=== PATIENT | male | born 1960 | race African-American/Black ===

== ENCOUNTER 2017-09-04 11:02 | Inpatient (IN) | payer OTHER ==
[2017-09-04 11:28] VITALS: BMI 27.3
--- NOTE | 2017-09-04 12:38 | HP ---
CIWA Score - CIWA Score Nausea/Vomitin Muscle Tremors: 3 Anxiety: 3 Agitation: 3 Paroxysmal Sweats: 1-Minimal Palms Moist Orientation: 0-Oriented Tacttile Disturbances: 2-Mild Itch/Numbness/Burn Auditory Disturbances: 2-Mild Harshness/Frighten Visual Disturbances: 0-None Headache: 2-Mild CIWA-Ar Total Score: 19 Admission ROS BHS - HPI Chief Complaint: i nee help to stop drinking alcohol Allergies/Adverse Reactions: Allergies Allergy/AdvReac Type Severity Reaction Status Date / Time Pork/Porcine Containing Allergy Unknown NO PORK Verified 09/04/17 12:16 Products [Pork/Porcine Product Derivatives] History of Present Illness: this 57 years old male with alcohol dependence,seeking detox,last detox [facility]12 syncope alcohol related hypertension,old fx both ankles hepatitis c left inguinal hernia no significant period of sobriety - Ebola screening Have you traveled outside of the country in the last 21 days: No Have you had contact with anyone from an Ebola affected area: No Have you been sick,other than usual withdrawal symptoms: No - Review of Systems Constitutional: Loss of Appetite, Malaise, Night Sweats, Changes in sleep, Weakness EENT: reports: Nose Congestion Respiratory: reports: No Symptoms reported Cardiac: reports: No Symptoms Reported GI: reports: Nausea, Poor Appetite, Vomiting, Abdominal cramping : reports: No Symptoms Reported Musculoskeletal: reports: Back Pain, Muscle Pain Integumentary: reports: Dryness Neuro: reports: Headache, Tremors Endocrine: reports: No Symptoms Reported Hematology: reports: No Symptoms Reported Psychiatric: reports: Anxious (insomnia), Depressed Patient History - Patient Medical History Hx Anemia: No Hx Asthma: No Hx Chronic Obstructive Pulmonary Disease (COPD): No Hx Cancer: No Hx Cardiac Disorders: No Hx Congestive Heart Failure: No Hx Hypertension: Yes (Pt is on MDI.) Hx Hypercholesterolemia: No Hx Pacemaker: No HX Cerebrovascular Accident: No Hx Seizures: No Hx Dementia: No Hx Diabetes: No Hx Gastrointestinal Disorders: No Hx Liver Disease: No Hx Genitourinary Disorders: No Hx Sexually Transmitted Disorders: No Hx Renal Disease (ESRD): No Hx Thyroid Disease: No Hx Human Immunodeficiency Virus (HIV): No (last 07/12) Hx Hepatitis C: No Hx Depression: No Hx Suicide Attempt: No Hx Bipolar Disorder: No Hx Schizophrenia: No Other Medical History: anxiety,depression,insomnia - Patient Surgical History Past Surgical History: Yes Hx Orthopedic Surgery: Yes (left ankle 02/03 R ankle sx) - PPD History Previous Implant?: Yes Documented Results: Negative w/proof Implanted On Prior R Admission?: Yes Date: 04/11/12 Results: 0 mm PPD to be Administered?: Yes - Smoking Cessation Smoking history: Former smoker Have you smoked in the past 12 months: No If you are a former smoker, when did you quit?: 1 yr ago Hx Chewing Tobacco Use: No Initiated information on smoking cessation: No - Substance & Tx. History Hx Alcohol Use: Yes Hx Substance Use: Yes Substance Use Type: Marijuana Hx Substance Use Treatment: Yes ([facility]/12) - Substances Abused Alcohol Route: Oral Frequency: Daily Amount used: fifth of vodka Age of first use: 14 Date of Last Use: 09/04/17 Marijuana/Hashish Route: Smoking Frequency: Daily Amount used: 1 blunt Age of first use: 14 Date of Last Use: 09/04/17 Family Disease History - Family Disease History Family Disease History: Other: Father (alcohol), Mother (alcohol) Admission Physical Exam S - Vital Signs Vital Signs: Vital Signs - 24 hr 09/04/17 11:26 Temperature 97.7 F Pulse Rate 88 Respiratory 18 Rate Blood Pressure 110/73 - Physical General Appearance: Yes: Moderate Distress, Tremorous, Irritable, Sweating, Anxious HEENTM: Yes: Normal ENT Inspection, Normocephalic, GWEN Respiratory: Yes: Within Normal Limits, Lungs Clear, Normal Breath Sounds Neck: Yes: Within Normal Limits, Supple, Trachea in good position Breast: Yes: Within Normal Limits Cardiology: Yes: Within Normal Limits, Regular Rhythm, Regular Rate, S1, S2 Abdominal: Yes: Within Normal Limits, Normal Bowel Sounds, Non Tender, Flat, Soft, Other (laft inguinal hernia) Genitourinary: Yes: Within Normal Limits Back: Yes: Muscle Spasm Musculoskeletal: Yes: full range of Motion, Back pain, Muscle Pain Extremities: Yes: Within Normal Limits, Normal Inspection, Normal Range of Motion 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, Alert, Motor Strength 5/5 Integumentary: Yes: Dry Lymphatic: Yes: Within Normal Limits - Diagnostic (1) Alcohol dependence with uncomplicated withdrawal Current Visit: Yes Status: Acute (2) Alcohol dependence with uncomplicated intoxication Current Visit: Yes Status: Acute (3) Cannabis dependence Current Visit: Yes Status: Acute (4) Syncope Current Visit: Yes Status: Acute (5) Left inguinal hernia Current Visit: Yes Status: Acute (6) Insomnia secondary to depression with anxiety Current Visit: Yes Status: Acute Cleared for Admission [facility] - Detox or Rehab [facility] Level of Care: Medically Managed Detox Regimen/Protocol: Librium S Breath Alcohol Content Breath Alcohol Content: 0.420 Urine Drug Screen - Results Drug Screen Negative: No Urine Drug Screen Results: THC-Marijuana, CARLOS-Cocaine, BZO-Benzodiazepines
[2017-09-04] MEDS ORDERED: chlordiazePOXIDE HCL 25 MG CAPSULE PO PRN (14:08)
[2017-09-04] MEDS ORDERED: ACETAMINOPHEN 325 MG TABLET (FP) PO PRN (14:08)
[2017-09-04] MEDS ORDERED: MAG HYDROX/AL HYDROX/SIMETH 30 ML UNIT-DOSE CUP PO PRN (14:08)
[2017-09-04] MEDS ORDERED: MAGNESIUM CITRATE 300 ML BOTTLE PO PRN (14:08)
[2017-09-04] MEDS ORDERED: MAGNESIUM HYDROX 2400MG/30ML ORAL SUSPENSION 30 ML CUP PO PRN (14:08)
[2017-09-04] MEDS ORDERED: IBUPROFEN 400 MG TABLET (FP) PO PRN (14:08)
[2017-09-04] MEDS ORDERED: guaiFENesin/D-METHORPHAN HB 10 ML UNIT-DOSE CUPS PO PRN (14:08)
[2017-09-04] MEDS ORDERED: hydrOXYzine PAMOATE 25 MG CAPSULE (FP) PO PRN (14:08)
[2017-09-04] MEDS ORDERED: P-EPHED 60MG/TRIPROLIDI 2.5MG TABLET PO PRN (14:08)
[2017-09-04] MEDS ORDERED: MENTHOL/PHENOL 1 EACH UD MM PRN (14:08)
[2017-09-04] MEDS ORDERED: chlordiazePOXIDE HCL 25 MG CAPSULE PO ONE (14:26)
--- NOTE | 2017-09-04 15:52 | CONSULT ---
[facility] Psychiatric Consult - Data Date of interview: 09/04/17 Admission source: [facility] Identifying data: Readmission to [facility] for this 57 y/o AA male seeking detox treatment on for alcohol,cocaine and cannabis dependence.Patient is single without children,domiciled,unemployed and supported on SSI benefits. Substance Abuse History: Confirmed by patient in this session.See current [facility] report for details : Smoking history: Former smoker. Have you smoked in the past 12 months: No. If you are a former smoker, when did you quit?: 1 yr ago. Hx Chewing Tobacco Use: No. Initiated information on smoking cessation: No. - Substance & Tx. History. Hx Alcohol Use: Yes. Hx Substance Use: Yes. Substance Use Type: Marijuana. Hx Substance Use Treatment: Yes ([facility] ). - Substances Abused. Alcohol. Route: Oral. Frequency: Daily. Amount used: fifth of vodka. Age of first use: 14. Date of Last Use: . Marijuana/Hashish. Route: Smoking. Frequency: Daily. Amount used: 1 blunt. Age of first use: 14. Date of Last Use: 09/04/17 Medical History: Hypertension,hepatitis C,left inguinal hernia and past history of orthosurgery for fracture of both ankles. Psychiatric History: Patient denies. Physical/Sexual Abuse/Trauma History: Patient denies. Additional Comment: Urine Drug Screen Results: THC-Marijuana, CARLOS-Cocaine, BZO- Benzodiazepines.Noted. Mental Status Exam - Mental Status Exam Alert and Oriented to: Time, Place, Person Cognitive Function: Good Patient Appearance: Well Groomed Mood: Anxious, Hopeful Affect: Mood Congruent Patient Behavior: Fatigued, Appropriate, Cooperative Speech Pattern: Clear Voice Loudness: Normal Thought Process: Intact, Goal Oriented Thought Disorder: Not Present Hallucinations: Denies Suicidal Ideation: Denies Homicidal Ideation: Denies Insight/Judgement: Poor Sleep: Poorly, Difficulty falling asleep Appetite: Good Muscle strength/Tone: Normal Gait/Station: Normal Psychiatric Findings - Problem List ([place] 1, 2,3) (1) Alcohol dependence with uncomplicated withdrawal Current Visit: Yes Status: Acute (2) Cannabis dependence Current Visit: Yes Status: Acute (3) Cocaine dependence Current Visit: Yes Status: Acute (4) Insomnia Current Visit: Yes Status: Acute - Initial Treatment Plan Initial Treatment Plan: Psychoeducation.Sleep hygiene.Detoxification in progress.Ambien 5 mg po hs prn.Patient is informed of risk of parasomnias.Agrees with careplan.Observation.
[2017-09-04 16:59] LABS: URINE APPEARANCE CLEAR; URINE BILIRUBIN NEGATIVE (NEGATIVE); URINE BLOOD NEGATIVE (NEGATIVE); URINE COLOR YELLOW; URINE GLUCOSE (UA) NEGATIVE (NEGATIVE); URINE KETONE NEGATIVE (NEGATIVE); URINE LEUK ESTERASE NEGATIVE (NEGATIVE); URINE NITRITE NEGATIVE (NEGATIVE); URINE UROBILINOGEN NEGATIVE mg/dL (0.2-1.0)
[2017-09-04 17:03] LABS: URINE PROTEIN 2+ (NEGATIVE)
[2017-09-04 17:08] LABS: EPI CELLS RARE /HPF (FEW); URINE HYALINE CAST 7 /lpf; URINE MUCUS FEW
[2017-09-04] MEDS: chlordiazePOXIDE HCL 25 MG CAPSULE PO SCH ×2 (17:30→22:25)
[2017-09-04] MEDS ORDERED: ZOLPIDEM TARTRATE 5 MG TABLET PO PRN ×2 (22:00)
[2017-09-04] MEDS: THIAMINE HCL 100 MG TABLET (FP) PO SCH (22:25)
[2017-09-05] MEDS: chlordiazePOXIDE HCL 25 MG CAPSULE PO SCH ×4 (06:00→22:16)
--- NOTE | 2017-09-05 09:12 | EKG ---
Test Reason : Blood Pressure : / mmHG Vent. Rate : 068 BPM Atrial Rate : 068 BPM P-R Int : 164 ms QRS Dur : 092 ms QT Int : 448 ms P-R-T Axes : 043 007 218 degrees QTc Int : 476 ms NORMAL SINUS RHYTHM T WAVE ABNORMALITY, CONSIDER INFERIOR ISCHEMIA T WAVE ABNORMALITY, CONSIDER ANTEROLATERAL ISCHEMIA PROLONGED QT ABNORMAL ECG NO PREVIOUS ECGS AVAILABLE Confirmed by NAVIN JORGE MD ([id number]) on 09/05/2017 9:12:05 AM Referred By: Confirmed By:NAVIN JORGE MD
[2017-09-05 09:59] LABS: HEMATOCRIT 43.9 % (35.4-49); MCHC 31.8 g/dl (32.0-35.9); MEAN PLT VOLUME 7.3 fl (7.5-11.1); PLATELET COUNT 230 K/MM3 (134-434); RBC 4.83 M/mm3 (4.00-5.60); RDW 16.3 % (11.9-15.9); WHITE BLOOD COUNT 4.9 K/mm3 (4.0-10.0)
[2017-09-05] MEDS ORDERED: HYDROCHLOROTHIAZIDE 25 MG TABLET (FP) PO SCH (10:00)
[2017-09-05 10:11] LABS: CHLORIDE 102 mmol/L (98-107); POTASSIUM 3.4 mmol/L (3.5-5.1); SODIUM 140 mmol/L (136-145)
[2017-09-05] MEDS: PRENATAL VITAMINS W/ FOLIC ACID TABLET (FP) PO SCH (10:19)
[2017-09-05 10:51] LABS: ALBUMIN 4.1 g/dl (3.4-5.0); ALK PHOS 52 U/L (45-117); ANION GAP 12 (8-16); BILIRUBIN,TOTAL 0.7 mg/dL (0.2-1.0); BLOOD UREA NITROGEN 13 mg/dL (7-18); CALCIUM 9.4 mg/dL (8.5-10.1); CO2 26 mmol/L (21-32); CREATININE 1.3 mg/dL (0.7-1.3); GLUCOSE,RANDOM 124 mg/dL (74-106); SGOT/AST 84 U/L (15-37); SGPT/ALT 83 U/L (12-78); TOT PROT 9.1 g/dl (6.4-8.2)
[2017-09-05] MEDS ORDERED: POTASSIUM CHLORIDE ORAL LIQUID 20 MEQ/15 ML PO ONE (11:00)
--- NOTE | 2017-09-05 11:01 | PN ---
[facility] CIWA - CIWA Score Nausea/Vomitin-No Nausea/No Vomiting Muscle Tremors: 4-Moderate,w/Arms Extend Anxiety: 4-Mod. Anxious/Guarded Agitation: 4-Moderately Restless Paroxysmal Sweats: 2 Orientation: 0-Oriented Tacttile Disturbances: 3-Moderate Itch/Numb/Burn Auditory Disturbances: 0-None Visual Disturbances: 0-None Headache: 0-None Present CIWA-Ar Total Score: 17 S Progress Note (SOAP) Subjective: ANXIETY,SWEATS,CHILLS,TREMORS,BACKACHES,INTERMITTENT SLEEP. Objective: 09/05/17 10:55 Vital Signs Temperature 97.9 F 09/05/17 06:19 Pulse Rate 80 09/05/17 09:26 Respiratory Rate 18 09/05/17 09:26 Blood Pressure 136/92 09/05/17 09:26 O2 Sat by Pulse Oximetry (%) Laboratory Last Values WBC 4.9 K/mm3 (4.0-10.0) 09/05/17 06:00 RBC 4.83 M/mm3 (4.00-5.60) 09/05/17 06:00 Hgb 14.0 GM/dL (11.7-16.9) D 09/05/17 06:00 Hct 43.9 % (35.4-49) 09/05/17 06:00 MCV 91.0 fl (80-96) 09/05/17 06:00 MCH 29.0 pg (25.7-33.7) 09/05/17 06:00 MCHC 31.8 g/dl (32.0-35.9) L 09/05/17 06:00 RDW 16.3 % (11.9-15.9) H 09/05/17 06:00 Plt Count 230 K/MM3 (134-434) 09/05/17 06:00 MPV 7.3 fl (7.5-11.1) L 09/05/17 06:00 Sodium 140 mmol/L (136-145) 09/05/17 06:00 Potassium 3.4 mmol/L (3.5-5.1) L D 09/05/17 06:00 Chloride 102 mmol/L (98-107) 09/05/17 06:00 Carbon Dioxide 26 mmol/L (21-32) 09/05/17 06:00 Anion Gap 12 (8-16) 09/05/17 06:00 BUN 13 mg/dL (7-18) 09/05/17 06:00 Creatinine 1.3 mg/dL (0.7-1.3) D 09/05/17 06:00 Creat Clearance w eGFR 57.10 (>60) 09/05/17 06:00 Random Glucose 124 mg/dL (74-106) H D 09/05/17 06:00 Calcium 9.4 mg/dL (8.5-10.1) 09/05/17 06:00 Total Bilirubin 0.7 mg/dL (0.2-1.0) D 09/05/17 06:00 AST 84 U/L (15-37) H D 09/05/17 06:00 ALT 83 U/L (12-78) H D 09/05/17 06:00 Alkaline Phosphatase 52 U/L (45-117) D 09/05/17 06:00 Total Protein 9.1 g/dl (6.4-8.2) H D 09/05/17 06:00 Albumin 4.1 g/dl (3.4-5.0) D 09/05/17 06:00 Urine Color Yellow 09/04/17 15:00 Urine Appearance Clear 09/04/17 15:00 Urine pH 5.0 (5.0-8.0) 09/04/17 15:00 Ur Specific [place] 1.021 (1.001-1.035) 09/04/17 15:00 Urine Protein 2+ (NEGATIVE) H 09/04/17 15:00 Urine Glucose (UA) Negative (NEGATIVE) 09/04/17 15:00 Urine Ketones Negative (NEGATIVE) 09/04/17 15:00 Urine Blood Negative (NEGATIVE) 09/04/17 15:00 Urine Nitrite Negative (NEGATIVE) 09/04/17 15:00 Urine Bilirubin Negative (NEGATIVE) 09/04/17 15:00 Urine Urobilinogen Negative mg/dL (0.2-1.0) 09/04/17 15:00 Ur Leukocyte Esterase Negative (NEGATIVE) 09/04/17 15:00 Urine WBC (Auto) 1 /hpf (3-5) 09/04/17 15:00 Urine RBC (Auto) <1 /hpf (0-3) 09/04/17 15:00 Ur Epithelial Cells Rare /HPF (FEW) 09/04/17 15:00 Hyaline Casts 7 /lpf 09/04/17 15:00 Urine Mucus Few 09/04/17 15:00 HIV 1&2 Antibody Screen Negative 09/04/17 14:30 HIV P24 Antigen Negative 09/04/17 14:30 K+ =3.4 Assessment: 09/05/17 10:56 WITHDRAWAL SX Plan: CONTINUE DETOX KCL LIQ 20 MEQ PO DAILY; FIRST DOSE NOW.
[2017-09-05] MEDS: THIAMINE HCL 100 MG TABLET (FP) PO SCH (22:16)
[2017-09-05] MEDS: LOPERAMIDE HCL 2 MG CAPSULE PO PRN (23:16)
[2017-09-06] MEDS: chlordiazePOXIDE HCL 25 MG CAPSULE PO SCH ×2 (05:18→10:18)
[2017-09-06] MEDS: LOPERAMIDE HCL 2 MG CAPSULE PO PRN (07:13)
[2017-09-06] MEDS: PRENATAL VITAMINS W/ FOLIC ACID TABLET (FP) PO SCH (10:18)
[2017-09-06] MEDS: amLODIPine BESYLATE 10 MG TABLET (FP) PO SCH (10:18)
[2017-09-06] MEDS: POTASSIUM CHLORIDE ORAL LIQUID 20 MEQ/15 ML PO SCH (10:19)
--- NOTE | 2017-09-06 10:47 | PN ---
[facility] CIWA - CIWA Score Nausea/Vomitin-No Nausea/No Vomiting Muscle Tremors: 4-Moderate,w/Arms Extend Anxiety: 4-Mod. Anxious/Guarded Agitation: 4-Moderately Restless Paroxysmal Sweats: 1-Minimal Palms Moist Orientation: 0-Oriented Tacttile Disturbances: 3-Moderate Itch/Numb/Burn Auditory Disturbances: 0-None Visual Disturbances: 0-None Headache: 0-None Present CIWA-Ar Total Score: 16 BHS Progress Note (SOAP) Subjective: TREMORS,ANXIETY,SWEATS,FATIGUE. Objective: 09/06/17 10:46 Vital Signs Temperature 98.0 F 09/06/17 09:49 Pulse Rate 84 09/06/17 09:49 Respiratory Rate 18 09/06/17 09:49 Blood Pressure 122/85 09/06/17 09:49 O2 Sat by Pulse Oximetry (%) Laboratory Last Values WBC 4.9 K/mm3 (4.0-10.0) 09/05/17 06:00 RBC 4.83 M/mm3 (4.00-5.60) 09/05/17 06:00 Hgb 14.0 GM/dL (11.7-16.9) D 09/05/17 06:00 Hct 43.9 % (35.4-49) 09/05/17 06:00 MCV 91.0 fl (80-96) 09/05/17 06:00 MCH 29.0 pg (25.7-33.7) 09/05/17 06:00 MCHC 31.8 g/dl (32.0-35.9) L 09/05/17 06:00 RDW 16.3 % (11.9-15.9) H 09/05/17 06:00 Plt Count 230 K/MM3 (134-434) 09/05/17 06:00 MPV 7.3 fl (7.5-11.1) L 09/05/17 06:00 Sodium 140 mmol/L (136-145) 09/05/17 06:00 Potassium 3.4 mmol/L (3.5-5.1) L D 09/05/17 06:00 Chloride 102 mmol/L (98-107) 09/05/17 06:00 Carbon Dioxide 26 mmol/L (21-32) 09/05/17 06:00 Anion Gap 12 (8-16) 09/05/17 06:00 BUN 13 mg/dL (7-18) 09/05/17 06:00 Creatinine 1.3 mg/dL (0.7-1.3) D 09/05/17 06:00 Creat Clearance w eGFR 57.10 (>60) 09/05/17 06:00 Random Glucose 124 mg/dL (74-106) H D 09/05/17 06:00 Calcium 9.4 mg/dL (8.5-10.1) 09/05/17 06:00 Total Bilirubin 0.7 mg/dL (0.2-1.0) D 09/05/17 06:00 AST 84 U/L (15-37) H D 09/05/17 06:00 ALT 83 U/L (12-78) H D 09/05/17 06:00 Alkaline Phosphatase 52 U/L (45-117) D 09/05/17 06:00 Total Protein 9.1 g/dl (6.4-8.2) H D 09/05/17 06:00 Albumin 4.1 g/dl (3.4-5.0) D 09/05/17 06:00 Urine Color Yellow 09/04/17 15:00 Urine Appearance Clear 09/04/17 15:00 Urine pH 5.0 (5.0-8.0) 09/04/17 15:00 Ur Specific [place] 1.021 (1.001-1.035) 09/04/17 15:00 Urine Protein 2+ (NEGATIVE) H 09/04/17 15:00 Urine Glucose (UA) Negative (NEGATIVE) 09/04/17 15:00 Urine Ketones Negative (NEGATIVE) 09/04/17 15:00 Urine Blood Negative (NEGATIVE) 09/04/17 15:00 Urine Nitrite Negative (NEGATIVE) 09/04/17 15:00 Urine Bilirubin Negative (NEGATIVE) 09/04/17 15:00 Urine Urobilinogen Negative mg/dL (0.2-1.0) 09/04/17 15:00 Ur Leukocyte Esterase Negative (NEGATIVE) 09/04/17 15:00 Urine WBC (Auto) 1 /hpf (3-5) 09/04/17 15:00 Urine RBC (Auto) <1 /hpf (0-3) 09/04/17 15:00 Ur Epithelial Cells Rare /HPF (FEW) 09/04/17 15:00 Hyaline Casts 7 /lpf 09/04/17 15:00 Urine Mucus Few 09/04/17 15:00 RPR Titer Nonreactive (NONREACTIVE) 09/05/17 06:00 HIV 1&2 Antibody Screen Negative 09/04/17 14:30 HIV P24 Antigen Negative 09/04/17 14:30 Assessment: 09/06/17 10:47 WITHDRAWAL SX Plan: CONTINUE DETOX INCREASE PO FLUIDS.
[2017-09-06] MEDS ORDERED: chlordiazePOXIDE HCL 25 MG CAPSULE PO ONE (14:30)
[2017-09-06] MEDS: chlordiazePOXIDE 5 MG CAPSULE PO SCH ×2 (17:32→22:14)
[2017-09-06] MEDS: THIAMINE HCL 100 MG TABLET (FP) PO SCH (22:14)
[2017-09-07] MEDS: chlordiazePOXIDE 5 MG CAPSULE PO SCH ×2 (05:51→10:16)
[2017-09-07] MEDS: POTASSIUM CHLORIDE ORAL LIQUID 20 MEQ/15 ML PO SCH (10:16)
[2017-09-07] MEDS: amLODIPine BESYLATE 10 MG TABLET (FP) PO SCH (10:16)
[2017-09-07] MEDS: PRENATAL VITAMINS W/ FOLIC ACID TABLET (FP) PO SCH (10:16)
--- NOTE | 2017-09-07 10:42 | PN ---
BHS Progress Note (SOAP) Subjective: Sweats, chills and malaise Objective: 09/07/17 10:41 Vital Signs - 8 hr 09/07/17 09/07/17 09/07/17 03:27 06:23 09:09 Temperature 97.5 F L 96.5 F L Pulse Rate 71 68 Respiratory 18 18 18 Rate Blood Pressure 122/80 126/85 Laboratory Last Values WBC 4.9 K/mm3 (4.0-10.0) 09/05/17 06:00 RBC 4.83 M/mm3 (4.00-5.60) 09/05/17 06:00 Hgb 14.0 GM/dL (11.7-16.9) D 09/05/17 06:00 Hct 43.9 % (35.4-49) 09/05/17 06:00 MCV 91.0 fl (80-96) 09/05/17 06:00 MCH 29.0 pg (25.7-33.7) 09/05/17 06:00 MCHC 31.8 g/dl (32.0-35.9) L 09/05/17 06:00 RDW 16.3 % (11.9-15.9) H 09/05/17 06:00 Plt Count 230 K/MM3 (134-434) 09/05/17 06:00 MPV 7.3 fl (7.5-11.1) L 09/05/17 06:00 Sodium 140 mmol/L (136-145) 09/05/17 06:00 Potassium 3.4 mmol/L (3.5-5.1) L D 09/05/17 06:00 Chloride 102 mmol/L (98-107) 09/05/17 06:00 Carbon Dioxide 26 mmol/L (21-32) 09/05/17 06:00 Anion Gap 12 (8-16) 09/05/17 06:00 BUN 13 mg/dL (7-18) 09/05/17 06:00 Creatinine 1.3 mg/dL (0.7-1.3) D 09/05/17 06:00 Creat Clearance w eGFR 57.10 (>60) 09/05/17 06:00 Random Glucose 124 mg/dL (74-106) H D 09/05/17 06:00 Calcium 9.4 mg/dL (8.5-10.1) 09/05/17 06:00 Total Bilirubin 0.7 mg/dL (0.2-1.0) D 09/05/17 06:00 AST 84 U/L (15-37) H D 09/05/17 06:00 ALT 83 U/L (12-78) H D 09/05/17 06:00 Alkaline Phosphatase 52 U/L (45-117) D 09/05/17 06:00 Total Protein 9.1 g/dl (6.4-8.2) H D 09/05/17 06:00 Albumin 4.1 g/dl (3.4-5.0) D 09/05/17 06:00 Urine Color Yellow 09/04/17 15:00 Urine Appearance Clear 09/04/17 15:00 Urine pH 5.0 (5.0-8.0) 09/04/17 15:00 Ur Specific [place] 1.021 (1.001-1.035) 09/04/17 15:00 Urine Protein 2+ (NEGATIVE) H 09/04/17 15:00 Urine Glucose (UA) Negative (NEGATIVE) 09/04/17 15:00 Urine Ketones Negative (NEGATIVE) 09/04/17 15:00 Urine Blood Negative (NEGATIVE) 09/04/17 15:00 Urine Nitrite Negative (NEGATIVE) 09/04/17 15:00 Urine Bilirubin Negative (NEGATIVE) 09/04/17 15:00 Urine Urobilinogen Negative mg/dL (0.2-1.0) 09/04/17 15:00 Ur Leukocyte Esterase Negative (NEGATIVE) 09/04/17 15:00 Urine WBC (Auto) 1 /hpf (3-5) 09/04/17 15:00 Urine RBC (Auto) <1 /hpf (0-3) 09/04/17 15:00 Ur Epithelial Cells Rare /HPF (FEW) 09/04/17 15:00 Hyaline Casts 7 /lpf 09/04/17 15:00 Urine Mucus Few 09/04/17 15:00 RPR Titer Nonreactive (NONREACTIVE) 09/05/17 06:00 HIV 1&2 Antibody Screen Negative 09/04/17 14:30 HIV P24 Antigen Negative 09/04/17 14:30 Labs noted Assessment: 09/07/17 10:41 Alcohol withdrawal sx Plan: Continue detox
[2017-09-07] MEDS: chlordiazePOXIDE HCL 10 MG CAPSULE PO SCH ×2 (17:58→22:26)
[2017-09-07] MEDS: THIAMINE HCL 100 MG TABLET (FP) PO SCH (22:26)
[2017-09-08] MEDS: chlordiazePOXIDE HCL 10 MG CAPSULE PO SCH (06:06)
[2017-09-08 09:39] VITALS: BP 126/80; PULSE 78; TEMP 97.4
--- NOTE | 2017-09-08 09:48 | DS ---
[facility] Detox Discharge Summary Admission Date: 09/04/17 Discharge Date: 09/08/17 - History Additional Comments: Hypokalemia HTN - Physical Exam Results Vital Signs: Vital Signs Temperature 97.4 F L 09/08/17 09:38 Pulse Rate 78 09/08/17 09:38 Respiratory Rate 18 09/08/17 09:38 Blood Pressure 126/80 09/08/17 09:38 O2 Sat by Pulse Oximetry (%) Pertinent Admission Physical Exam Findings: withdrawal sx - Treatment Hospital Course: Detox Protocol Followed, Detoxed Safely, Responded well, Discharged Condition Good, Rehab Referral Accepted Patient has Accepted a Rehab Referral to: 28 day AA steps at [facility] - Medication Discharge Medications: Ambulatory Orders Hydrochlorothiazide [Hctz -] 25 mg PO DAILY #30 tablet 09/08/17 - Diagnosis (1) Alcohol dependence with uncomplicated intoxication Status: Acute (2) Cannabis dependence Status: Acute (3) Cocaine dependence Status: Acute Qualifiers: Substance use status: uncomplicated Qualified Code(s): F14.20 - Cocaine dependence, uncomplicated - AMA Did Patient Leave Against Medical Advice: No
== END 2017-09-08 09:38 | disposition home or self-care (01) | DRG 774 ==
LOC: YASAS 11:02 → Y3N 12:45
PROVIDERS: ADMIT Internal Medicine; ATTEND Internal Medicine
PROC: HZ2ZZZZ Detoxification Services for Substance Abuse Treatment (ICD-10-PCS; principal; 2017-09-04)
DX: F10.230 Alcohol dependence with withdrawal, uncomplicated (principal); F14.20 Cocaine dependence, uncomplicated; F12.20 Cannabis dependence, uncomplicated; F41.8 Other specified anxiety disorders; I10 Essential (primary) hypertension; G47.00 Insomnia, unspecified; R55 Syncope and collapse; K40.90 Unilateral inguinal hernia, without obstruction or gangrene, not specified as recurrent
CPT/HCPCS: 36415; 80053; 81003; 81015; 85027; 86593; 87389; 93005; 93010